=== PATIENT | female | born 1965 | race Caucasian/White ===

== ENCOUNTER 2017-07-25 08:48 | Outpatient (CLI) | payer BC ==
--- NOTE | 2017-07-25 09:06 | MMO ---
BILATERAL SCREENING MAMMOGRAM: DATE: 07/25/17 HISTORY: 52-year-old female for screening mammography. COMPARISON: 08/12/08. FINDINGS: Bilateral MLO and CC views of the breasts show heterogeneously dense breast parenchyma, which may lo wer the sensitivity of mammography. There is a new asymmetry in the middle depth of the right breast, centrally. This is not definitely seen on the prior mammogram. Benign appearing calcifications are seen in both breasts. No suspicious calcifications are present. IMPRESSION: Focal asymmetry in the right breast. BIRADS 0: Incomplete: Need Additional Imaging Evaluation and/or Prior Mammograms for Comparison Spot compression views are recommended for further evaluation. If this area persists, then an ultras ound will also need to be performed. The facility will notify the patient of the need for additional imaging services. POS: [facility]
== END 2017-07-25 08:49 | disposition home or self-care (01) ==
LOC: MAMMO 08:48
PROVIDERS: ATTEND Family Medicine
DX: Z12.31 Encounter for screening mammogram for malignant neoplasm of breast (principal); N64.89 Other specified disorders of breast
CPT/HCPCS: 77067; G0202

== ENCOUNTER 2017-08-02 14:46 | Outpatient (CLI) | payer BC ==
[2017-08-02 15:40] LABS: #Eosinphils 0.2 thou/uL (0.0-0.7); #Lymphocytes 1.5 thou/uL (1.20-3.40); #Monocytes 0.7 thou/uL (0.11-0.59); #Neutrophils 4.9 thou/uL (1.40-6.50); %Basophils 0.6 % (0.0-1.0); %Eosinophils 2.1 % (0.0-10.0); %Lymphocytes 20.1 % (21.0-51.0); %Monocytes 9.2 % (0.0-10.0); Hematocrit 44.8 % (36.0-47.0); Mean Platelet Volume 7.4 fL (7.4-10.4); Red Blood Cell (RBC) Count 4.22 mill/uL (4.20-5.40); White Blood Cell (WBC) Count 7.2 thou/uL (4.8-10.8)
[2017-08-02 16:01] LABS: Anion Gap 13 mmol/L (10-20); BUN (Urea Nitrogen) 15 mg/dL (9.8-20.1); Calc. Creatinine Clearance 0 mL/min (70-130); Calcium 9.4 mg/dL (7.8-10.44); Carbon Dioxide 27 mmol/L (22-29); Chloride 105 mmol/L (98-107); Estimated GFR-MDRD 72
--- NOTE | 2017-08-02 16:55 | RAD ---
CHEST 2 VIEWS: Date: 08/02/17 HISTORY: Preoperative exam. COMPARISON: None. FINDINGS: Normal cardiac silhouette. Pulmonary vessels and hilum are normal. Costophrenic angles are clear. No masses. No consolidation. No osseous abnormalities. No pneumothorax. IMPRESSION: No acute cardiopulmonary process. POS: [facility]
--- NOTE | 2017-08-05 11:37 | EKG ---
Test Reason : Blood Pressure : / mmHG Vent. Rate : 065 BPM Atrial Rate : 065 BPM P-R Int : 186 ms QRS Dur : 076 ms QT Int : 424 ms P-R-T Axes : 048 034 024 degrees QTc Int : 440 ms Normal sinus rhythm Cannot rule out Anterior infarct , age undetermined changes could be due to lead placement Abnormal ECG No previous ECGs available Confirmed by DR. Tahmina ROMEO ([id number]) on 08/05/2017 11:37:00 AM Referred By: GABRIELLA Confirmed By:DR. Tahmina ROMEO
== END 2017-08-02 14:47 | disposition home or self-care (01) ==
LOC: LABBT 14:46
PROVIDERS: ATTEND Orthopaedic Surgery Hand Surgery
DX: Z01.818 Encounter for other preprocedural examination (principal); M67.441 Ganglion, right hand
CPT/HCPCS: 71020; 80048; 85025; 93005; 93010

== ENCOUNTER 2017-08-05 14:10 | Day surgery (SDC) | payer BC ==
[2017-08-02 15:04] VITALS: BMI 38.2
[2017-08-05] MEDS ORDERED: Bupivacaine PF 0.5% 30 ML VIAL ONE (15:18)
[2017-08-05] MEDS ORDERED: Bacitracin Zinc Ointment 30 gm TUBE ONE (15:18)
[2017-08-05] MEDS ORDERED: CEFAZOLIN/Water 2 GM/20 ML SYRINGE ONE (15:28)
[2017-08-05] MEDS ORDERED: Midazolam HCl 2 mg/2 ml Vial ONE (16:27)
[2017-08-05] MEDS ORDERED: Fentanyl 100 MCG/2 ML VIAL ONE (16:27)
[2017-08-05] MEDS ORDERED: Ondansetron HCl/PF 4 MG/2 ML Vial ONE (16:43)
[2017-08-05] MEDS ORDERED: Dexamethasone 20 MG/5 ML VIAL ONE (16:43)
[2017-08-05] MEDS ORDERED: Propofol 200 MG/20 ML VIAL ONE (16:43)
[2017-08-05] MEDS ORDERED: Lidocaine 1% PF 5 ML VIAL ONE (16:43)
[2017-08-05] MEDS ORDERED: Ketorolac Tromethamine 30 MG/ML VIAL ONE ×2 (16:43→18:09)
--- NOTE | 2017-08-06 08:42 | OP ---
DATE OF PROCEDURE: 08/05/2017 PREOPERATIVE DIAGNOSIS: Right thumb ganglion, 8 mm. 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 PROCEDURES PERFORMED: 1. Extensor tenotomy, terminal portion, extensor pollicis longus. 2. Arthrotomy, interphalangeal joint. 3. Excision of biopsy mass right toe, possible brown tumor versus ganglion. TOURNIQUET TIME: Seven minutes. SURGEON: Channing Hodges MD BINDER LOCKSTITCH: Bernard Leblanc. COMPLICATIONS: None. SPECIMEN: Yes, the mass of 7 to 8 mm was sent to pathology. ANESTHESIA: General LMA technique, [place] Anesthesia, augmented by 8 mL 0.5% Marcaine block with e pinephrine. DESCRIPTION OF PROCEDURE: After successful general endotracheal anesthesia, the limb was prepped an d draped. Timeout was done appropriately. L-shaped incision was then made centered over the mass, which was essentially on the radial side. Care to skin, subcutaneous tissue, trying to protect the superficial nerve, terminal branches and then we found the mass to be brown, thick and more solid an d cystic. The mass was elevated after doing an extensive tenotomy to remove it from its adherence t o extensor tendon and pushed extensor tendon ulnarly and in the gap underneath this was the joint ca psule, which had a small hole in it. We opened the joint capsule arthrotomy and drained it. There was no abnormal fluid. No chondral degeneration seen. We irrigated, lifted the tumor/mass out and it was brown, fleshy and thick, approximately 8 mm in diameter. Tourniquet was deflated. Hemostasis obtained. Wound closed with interrupted 5-0 nylon simple patte rn. A bulky dressing was applied and the patient left the operating room without evidence of anesth etic complication.
== END 2017-08-05 18:55 | disposition home or self-care (01) ==
LOC: SDC 14:10
PROVIDERS: ATTEND Orthopaedic Surgery Hand Surgery
PROC: 0LB70ZZ Excision of Right Hand Tendon, Open Approach (ICD-10-PCS; principal; 2017-08-05)
PROC: 0R9W0ZZ Drainage of Right Finger Phalangeal Joint, Open Approach (ICD-10-PCS; principal; 2017-08-05)
PROC: 0LC70ZZ Extirpation of Matter from Right Hand Tendon, Open Approach (ICD-10-PCS; principal; 2017-08-05)
DX: D48.1 Neoplasm of uncertain behavior of connective and other soft tissue (principal); F41.9 Anxiety disorder, unspecified; I10 Essential (primary) hypertension; F32.9 Major depressive disorder, single episode, unspecified; E66.9 Obesity, unspecified; Z97.5 Presence of (intrauterine) contraceptive device; Z68.38 Body mass index [BMI] 38.0-38.9, adult; Z79.899 Other long term (current) drug therapy; Z90.89 Acquired absence of other organs; Z98.818 Other dental procedure status; Z98.890 Other specified postprocedural states
CPT/HCPCS: 88307; J1100; J1885; J2001; J2250; J2405; J2704; J3010; S0020

== ENCOUNTER 2017-08-06 13:39 | Outpatient (CLI) | payer BC ==
--- NOTE | 2017-08-21 16:17 | MMO ---
RIGHT UNILATERAL DIAGNOSTIC MAMMOGRAM: Date: 08/06/17 HISTORY: A 52-year-old female returns for additional views of the right breast to evaluate a somewhat nodular density seen only on the CC view. FINDINGS: Additional views, including mag compression spot views in CC and MLO, 90 degree mediolateral, and rol led CC views are performed. This density compresses out with these additional views. Appearance appears stable from old examinati ons, including 05/14/14, 04/11/13, 01/24/12, and 01/22/12, including previous right breast rolled vie ws which were done on 01/24/12 which appear to be stable and unchanged. IMPRESSION: BIRADS 2: Benign Finding(s) Continue annual follow-up screening mammograms. POS: [facility]EL
== END 2017-08-06 13:40 | disposition home or self-care (01) ==
LOC: MAMMO 13:39
PROVIDERS: ATTEND Family Medicine
DX: R92.2 Inconclusive mammogram (principal)
CPT/HCPCS: G0206-RT

== ENCOUNTER 2018-05-28 17:54 | Inpatient (IN) | payer BC ==
[2018-05-28 18:48] LABS: Hemoglobin 14.8 g/dL (12.0-16.0); Mean Corpuscular HGB CONC 34.8 g/dL (32.0-36.0); Mean Corpuscular Hemoglobin 35.7 pg (27.0-31.0); Mean Platelet Volume 8.7 fL (7.4-10.4); Platelet Count 202 thou/uL (130-400); Red Blood Cell (RBC) Count 4.15 mill/uL (4.20-5.40); White Blood Cell (WBC) Count 9.1 thou/uL (4.8-10.8)
--- NOTE | 2018-05-28 18:48 | RAD ---
CHEST TWO VIEW 05/28/18 HISTORY: Pneumonia. COMPARISON: Radiograph of 08/02/17. FINDINGS: The lungs are hypoinflated with vascular crowding. Small effusions. There are air space opacities in both lower lobes which may reflect underlying infiltrate. IMPRESSION: Findings concerning for small bilateral pleural effusions and lower lobe pneumonia. Followup after tr eatment recommended. POS: [facility]
[2018-05-28 19:04] LABS: Band 26 % (5-11); Lymphocytes 5 % (21-51); MDiff Complete? YES; Monocytes 6 % (0-10); Neutrophil 62 % (42-75); PLT Morphology Comment Appears Adequate; RBC Morphology Normal; Toxic Granulation SLIGHT; Vacuoles SLIGHT
[2018-05-28 19:15] LABS: ALT (SGPT) 63 U/L (8-55); AST (SGOT) 99 U/L (5-34); Alkaline Phosphatase 53 U/L (40-150); Anion Gap 17 mmol/L (10-20); BUN (Urea Nitrogen) 37 mg/dL (9.8-20.1); Bilirubin, Total 0.6 mg/dL (0.2-1.2); CK (CPK) 1953 U/L (29-168); Calc. Creatinine Clearance 0 mL/min (70-130); Calcium 9.4 mg/dL (7.8-10.44); Carbon Dioxide 20 mmol/L (22-29); Chloride 89 mmol/L (98-107); Estimated GFR-MDRD 24; Globulin 3.8 g/dL (2.4-3.5); Glucose 110 mg/dL (70-105); Protein, Total 7.8 g/dL (6.0-8.3); Sodium 123 mmol/L (136-145)
[2018-05-28 19:19] LABS: CKMB 4.3 ng/mL (0-6.6); Troponin I Less than 0.010 ng/mL (< 0.028)
[2018-05-28 19:23] LABS: Potassium 2.9 mmol/L (3.5-5.1)
[2018-05-28] MEDS ORDERED: Albuterol Sulfate 2.5 mg/3 ml Neb ONE (19:57)
[2018-05-28] MEDS ORDERED: Potassium Chloride 20 MEQ TAB ONE (21:45)
[2018-05-28] MEDS ORDERED: Azithromycin 500 MG VIAL ONE (21:45)
[2018-05-28] MEDS ORDERED: Senokot 8.6 MG TAB PO PRN (21:53)
[2018-05-28] MEDS ORDERED: Calcium Carbonate 500 MG ChewTAB PO PRN (21:53)
[2018-05-28] MEDS ORDERED: Mag-Al 1200 mg/1200 mg/30 ML UDCUP PO PRN (21:53)
[2018-05-28] MEDS ORDERED: HYDROcodone/Acetaminophen 5/325 mg Tablet PO PRN (21:53)
[2018-05-28] MEDS ORDERED: Bisacodyl 5 MG TAB PO PRN (21:53)
[2018-05-28] MEDS ORDERED: Ondansetron HCl/PF 4 MG/2 ML Vial IVP PRN (21:53)
[2018-05-28] MEDS ORDERED: Acetaminophen 325 MG TAB PO PRN (21:53)
[2018-05-28] MEDS ORDERED: traZODone HCl 50 MG TAB PO PRN (21:54)
[2018-05-28] MEDS ORDERED: Benzonatate 100 MG CAP PO PRN (21:54)
[2018-05-28] MEDS ORDERED: cloNIDine 0.1 MG TAB PO PRN (21:54)
[2018-05-28] MEDS ORDERED: Loratadine 10 MG TAB PO PRN (21:54)
[2018-05-28] MEDS ORDERED: traMADol HCl 50 MG TAB PO PRN (21:54)
[2018-05-28] MEDS ORDERED: hydrALAZINE 20 MG/ML VIAL SLOW IVP PRN (21:54)
[2018-05-28] MEDS ORDERED: Lorazepam 1 MG TAB PO PRN (21:54)
[2018-05-28] MEDS ORDERED: Diabetic Tussin 200 MG/10 ML UDCUP PO PRN (21:54)
[2018-05-28] MEDS ORDERED: cefTRIAXone\\ROCEPHIN 2 GM VIAL ONE (21:59)
[2018-05-28] MEDS ORDERED: Azithromycin 250 MG TAB ONE (21:59)
[2018-05-28] MEDS ORDERED: guaiFENesin ER 600 MG TAB PO SCH (22:30)
[2018-05-28] MEDS ORDERED: cefTRIAXone\\ROCEPHIN 2 GM in Sodium Chloride 0.9% 100 ML IVPB SCH (22:30)
[2018-05-28] MEDS ORDERED: Azithromycin 500 MG in Sodium Chloride 0.9% 250 ML 250 ML IVPB SCH (23:59)
[2018-05-29 01:08] VITALS: BMI 40.1
[2018-05-29] MEDS: Sodium Chloride 0.9% 1,000 ML IV SCH ×2 (01:27→08:46)
--- NOTE | 2018-05-29 02:43 | HP ---
DATE OF ADMISSION: 05/29/2018 The patient was seen prior midnight. PRIMARY CARE PHYSICIAN: Dr. Delmy Mccabe. CHIEF COMPLAINT: Worsening shortness of breath, fever, and cough. HISTORY OF PRESENT ILLNESS: Ms. Lyn is a 52-year-old female with past medical history of hypertens ion, who presented to the ER with above-mentioned complaint. History is mainly obtained by the patie nt herself and electronic medical records have been reviewed. Case has been discussed with the admit [facility] ER physician, Dr. Hirsch. Ms. Lyn report that she has had diarrhea for about 2 weeks, which is nonbloody. It is not associat ed with any abdominal cramps. She started to notice that she has not been urinating very frequently. She has noticed fever and cough for the last 2-3 days, she started to have significant cough. She sought care at the urgent care clinic twice for now and only yesterday, she was given injection of an antibiotic and was supposed to go back today to repeat the injection, but her symptoms of breathing got worse and she presented to the ER instead. She reports that she was up all night, last night bec ause of cough and had fever as high as 103.9. She denies any myalgias or arthralgias. She has a get e-in boyfriend and reports that he has some sort of a viral illness about a week or two ago, but he i s all better now, but the patient got sick. Upon presentation to the emergency room, her oxygen saturation was 92% on room air, but she was somew hat tachypneic with respiratory rate of 22-29. Her temperature in the emergency room initially was 9 9.1 and chest x-ray done in the ER showed a possibility of right lower lobe infiltrate. She was foun d to have significant lab abnormalities including hyponatremia with sodium of 123, hypokalemia with a potassium of 2.9, non-anion gap metabolic acidosis, as well as acute renal insufficiency with a BUN of 37 and creatinine of 2.16. Her lactic acid was normal at 1.1. She also has evidence of rhabdomyo lysis with elevated CK of 1953. Mild elevation of AST and ALT. Cardiac enzymes and BNP were normal. She was given Rocephin and azithromycin along with potassium and albuterol inhaler in the emergency r oom and is now being admitted with a presumptive diagnosis of community-acquired pneumonia. PAST MEDICAL HISTORY: 1. Anxiety. 2. Hypertension. 3. Depression. PAST SURGICAL HISTORY: section x2. FAMILY HISTORY: Father is . He had accidental drowning. Mother is alive. Siblings are ali ve and healthy. No family history of premature coronary artery disease or stroke. SOCIAL HISTORY: No history of tobacco or drug abuse. She does drink about 8 ounces of scotch every day and has stopped drinking only 1 month ago. She is living with her live-in boyfriend for 5 years now. ALLERGIES: No known medication allergies. CURRENT MEDICATIONS: Not updated as yet. She does report that she takes sertraline, and lisinopril unknown dose. REVIEW OF SYSTEMS: A 12-point review of systems was done. It is negative except for those mentioned in the history and physical. The patient does report some black colored stools, but no leidy blood or abdominal pain. She denies any recent travel. She denies any recent immobilization. She denies any lower extremity swelling or tenderness or pain. LABORATORY AND DIAGNOSTIC DATA: CBC shows hemoglobin of 14.8 with hematocrit of 42.5, MCV and MCH ar e both high. She has 26% bands with normal WBC count. Serum chemistries as above shows sodium 123, potassium 2.9, chloride 89, bicarbonate 20, BUN is 37, creatinine 2.16. AST 99, ALT 63, alkaline nadia sphatase 1953. Chest x-ray by my review shows small bilateral pleural effusion and bilateral lower l obe pneumonia. A 12-lead EKG by my review shows sinus tachycardia at 101 beats per minute with cynthia l ST segments and T waves. PHYSICAL EXAMINATION: VITAL SIGNS: Most recent vital signs, temperature 100.0, pulse of 93, respirations 18, saturating 93 % on room air, blood pressure 140/73, BMI of 40.2. GENERAL: She is walking around to the bathroom and now sitting up in the chair during the time of my examination. She is in no acute distress, in no respiratory distress. She is able to talk in full sentences and is not overtly short of breath, but she does definitely is breathing a little fast. HEENT: She has a thick coating on her tongue, which she reports that goes away when she brushes but comes back later. No oropharyngeal exudate or erythema. Head is normocephalic, atraumatic. Pupils are equal, reactive to light and accommodation. Extraocular movements are intact. NECK: Supple without any lymphadenopathy, JVD, or bruit. CHEST: Clear to auscultation without any wheezing, rales, or rhonchi. Breath sounds are reduced at bases and somewhat coarse. CARDIOVASCULAR: Rare and rhythm is regular without any murmur, rubs, or gallops. ABDOMEN: Obese, soft, nontender, nondistended with positive bowel sounds. EXTREMITIES: Free of any cyanosis, clubbing, or edema. NEUROLOGIC: Nonfocal. SKIN: Free of any rashes or bruises. Feels warm and dry to touch. PSYCHIATRIC: Normal. IMPRESSION AND PLAN: 1. Community-acquired pneumonia. The patient will be treated with Rocephin and azithromycin as star meghan in the emergency room. We will send for urinary legionella and pneumococcal antigens, though it is still early for the influenza season: We will go ahead and check her for the respiratory viral pa thogens. We will continue oxygen as needed and add nebulizers as needed as well. We will add Mucine x and incentive spirometry and provide symptomatic and supportive care. 2. Sepsis. The patient has bandemia along with pneumonia and fever and tachypnea. We will continue IV antibiotics as above and order blood cultures. We will also check a urinalysis and send urine fo r culture if infection is suspected. Most likely source at this time is, however, just pneumonia. 3. Hyponatremia. This is secondary to severe dehydration as the patient describes poor appetite and diarrhea for the last 2 weeks. We will start her on gentle IV fluid hydration with a goal to raise the sodium by 10 mEq over the 24 hours. 4. Hypochloremic nonmetabolic acidosis. Once again indicative of severe dehydration, continue IV fl uids as above and monitor labs. 5. Acute renal insufficiency. The patient has dehydration secondary to diarrhea with resultant prer enal azotemia. We will continue with IV fluids and recheck labs in the morning. Avoid any nephrotox ic medications. 6. Rhabdomyolysis. Continue generous IV fluid hydration and recheck CPK in the morning. 7. Elevated liver enzymes, this likely secondary to chronic alcoholism. The patient has been counse led and she has been abstinent for 1 month. 8. Melena. I am not sure what the patient is describing it is melena or not: However, she is at [facility] for upper gastrointestinal bleed given her alcoholism history and with possible gastritis, peptic ulcers, or variceal bleeding. At this time, I will put her on Protonix twice a day and monitor her H &H closely. If with hydration her H&H drops and she continues to have melena, we will request consul tation with Gastroenterology for a possible endoscopy. If her H&H remained stable, she would benefit from outpatient workup with an endoscopy in the near future. 9. History of hypertension. The patient takes IAN inhibitor and hydrochlorothiazide. Given acute r enal insufficiency at this time: We will hold it and use p.r.n. antihypertensives for now. 10. Alcohol abuse. The patient has been counseled. She has been abstinent for 1 month and add low risk for any alcohol withdrawal symptoms or delirium tremens. She will be monitored. 11. Code status: FULL CODE. Discussed with the patient. 12. Deep venous thrombosis and gastrointestinal prophylaxis. DISPOSITION: Ms. Lyn is currently being admitted to the hospital with a multitude of issues includ ing severe dehydration, sepsis, pneumonia, acute renal insufficiency. Estimated length of stay at this time is at least 2-3 midnights. Further management will depend upon her clinical course. Total time spent in admitting this complicated and sick patient is 40 minutes.
[2018-05-29 06:12] LABS: #Lymphocytes 0.8 thou/uL (1.20-3.40); #Monocytes 0.7 thou/uL (0.11-0.59); #Neutrophils 5.9 thou/uL (1.40-6.50); %Basophils 0.2 % (0.0-1.0); %Eosinophils 0.1 % (0.0-10.0); %Lymphocytes 10.9 % (21.0-51.0); %Monocytes 9.4 % (0.0-10.0); %Neutrophils 79.3 % (42.0-75.0); Hemoglobin 13.1 g/dL (12.0-16.0); Mean Corpuscular HGB CONC 35.3 g/dL (32.0-36.0); Mean Corpuscular Hemoglobin 36.2 pg (27.0-31.0); Mean Platelet Volume 8.8 fL (7.4-10.4); Platelet Count 184 thou/uL (130-400); Red Blood Cell (RBC) Count 3.61 mill/uL (4.20-5.40); White Blood Cell (WBC) Count 7.5 thou/uL (4.8-10.8)
[2018-05-29 06:19] LABS: Anion Gap 14 mmol/L (10-20); BUN (Urea Nitrogen) 35 mg/dL (9.8-20.1); Calc. Creatinine Clearance 71 mL/min (70-130); Calcium 8.9 mg/dL (7.8-10.44); Carbon Dioxide 22 mmol/L (22-29); Chloride 93 mmol/L (98-107); Estimated GFR-MDRD 31; Glucose 107 mg/dL (70-105); Sodium 126 mmol/L (136-145)
[2018-05-29 06:38] LABS: HIV (1/2) Antibody/Antigen Non-Reactive (NonReactive); HIV 1/2 INDEX 0.08 S/CO (<1.00)
[2018-05-29] MEDS ORDERED: Potassium Chloride 20 MEQ TAB PO SCH (08:00)
[2018-05-29] MEDS: guaiFENesin ER 600 MG TAB PO SCH ×2 (08:45→20:54)
[2018-05-29] MEDS: Enoxaparin Sodium 40 MG/0.4 ML SYRINGE SC SCH (08:45)
[2018-05-29] MEDS ORDERED: Famotidine 20 MG TAB PO SCH (09:00)
--- NOTE | 2018-05-29 10:56 | PDOC.PN ---
- Subjective Encounter Start Date: 05/29/18 Encounter Start Time: 09:25 Subjective: has exertional sob, no abd pain -: is oriented well this morning - Objective MAR Reviewed: Yes Vital Signs & Weight: Vital Signs (12 hours) Temp Pulse Resp BP Pulse Ox 05/29/18 06:41 96 05/29/18 06:39 80 16 96 05/29/18 03:42 101.7 F H 92 24 H 142/77 H 93 L 05/29/18 01:25 90 16 93 L 05/29/18 01:23 100.0 F H 90 16 93 L 05/29/18 01:07 100.0 F H 93 18 140/73 93 L Weight Weight 264 lb 4.8 oz Result Diagrams: 05/29/18 05:17 05/29/18 05:17 Phys Exam - Physical Examination HEENT: PERRLA, moist MMs Neck: no JVD, supple Respiratory: no rales, wheezing present Cardiovascular: RRR, no significant murmur Gastrointestinal: soft, non-tender, positive bowel sounds Musculoskeletal: no edema, pulses present Neurological: non-focal, moves all 4 limbs Psychiatric: normal affect, A&O x 3 Dx/Plan (1) PNA (pneumonia) Code(s): J18.9 - PNEUMONIA, UNSPECIFIED ORGANISM Status: Acute Qualifiers: Pneumonia type: due to unspecified organism (2) Sepsis Code(s): A41.9 - SEPSIS, UNSPECIFIED ORGANISM Status: Acute Qualifiers: Sepsis type: sepsis due to unspecified organism Qualified Code(s): A41.9 - Sepsis, unspecified organism (3) Hyponatremia Code(s): E87.1 - HYPO-OSMOLALITY AND HYPONATREMIA Status: Acute (4) Hypokalemia Code(s): E87.6 - HYPOKALEMIA Status: Acute (5) H/O alcohol abuse Code(s): Z87.898 - PERSONAL HISTORY OF OTHER SPECIFIED CONDITIONS Status: Chronic (6) Obesity Code(s): E66.9 - OBESITY, UNSPECIFIED Status: Chronic Qualifiers: Obesity classification: adult class 3 (BMI >= 40) Body mass index: BMI 40.0 -44.9 (7) FEROZ (acute kidney injury) Code(s): N17.9 - ACUTE KIDNEY FAILURE, UNSPECIFIED Status: Acute - Plan gentle iv hydration -: correct electrolytes -: is on zithromax and ceftriaxone -: duonebs, will add steroids if wheezing get worse -: to ambulate as tolerated, tx to medical floor * . Review of Systems - Medications/Allergies Allergies/Adverse Reactions: Allergies Allergy/AdvReac Type Severity Reaction Status Date / Time No Known Allergies Allergy Verified 05/29/18 04:02 Medications: Current Medications Acetaminophen (Tylenol) 650 mg PO Q4H PRN PRN Reason: Headache/Fever or Pain Hydrocodone Bitart/Acetaminophen ([place] 5/325) 1 tab PO Q4H PRN PRN Reason: Moderate Pain (4-6) Al Hydroxide/Mg Hydroxide (Maalox) 30 ml PO Q6H PRN PRN Reason: Heartburn or Indigestion Albuterol/Ipratropium (Duoneb) 3 ml NEB [id number] [facility] Last Admin: 05/29/18 06:39 Dose: 3 ml Albuterol/Ipratropium (Duoneb) 3 ml NEB [id number] PRN PRN Reason: SOB &/or Wheezing Benzonatate (Tessalon) 100 mg PO Q4H PRN PRN Reason: Cough Bisacodyl (Dulcolax) 10 mg PO DAILYPRN PRN PRN Reason: Constipation Calcium Carbonate (Tums) 1,000 mg PO Q4H PRN PRN Reason: Heartburn or Indigestion Clonidine (Catapres) 0.1 mg PO Q4H PRN PRN Reason: Systolic BP > 160 Enoxaparin Sodium (Lovenox) 40 mg SC 0900 [facility] Last Admin: 05/29/18 08:45 Dose: 40 mg Guaifenesin (Robitussin Sf) 200 mg PO Q4H PRN PRN Reason: Cough Guaifenesin (Mucinex) 1,200 mg PO Q12HR [facility] Last Admin: 05/29/18 08:45 Dose: 1,200 mg Hydralazine HCl (Apresoline) 10 mg SLOW IVP Q4H PRN PRN Reason: Systolic BP > 170 Sodium Chloride (Normal Saline 0.9%) 1,000 mls @ 100 mls/hr IV .Q10H [facility] Last Admin: 05/29/18 08:46 Dose: 1,000 mls Ceftriaxone Sodium 2 gm/ (Sodium Chloride) 100 mls @ 200 mls/hr IVPB Q24HR [facility] Azithromycin 500 mg/ Sodium (Chloride) 250 mls @ 250 mls/hr IVPB Q24HR [facility] Loratadine (Claritin) 10 mg PO DAILYPRN PRN PRN Reason: Sinus Symptoms Lorazepam (Ativan) 1 mg PO Q4H PRN PRN Reason: Anxiety/Agitation Ondansetron HCl (Zofran) 4 mg IVP Q6H PRN PRN Reason: Nausea/Vomiting Pantoprazole Sodium (Protonix) 40 mg PO BID [facility] Last Admin: 05/29/18 08:45 Dose: 40 mg Potassium Chloride (K-Dur) 20 meq PO QAM-WM [facility] Last Admin: 05/29/18 08:44 Dose: 20 meq Senna (Senokot) 2 tab PO HSPRN PRN PRN Reason: Constipation Sodium Chloride (Flush - Normal Saline) 10 ml IVF Q12HR [facility] Last Admin: 05/29/18 08:46 Dose: Not Given Sodium Chloride (Flush - Normal Saline) 10 ml IVF PRN PRN PRN Reason: Saline Flush Tramadol HCl (Ultram) 50 mg PO Q4H PRN PRN Reason: Moderate Pain (4-6) Trazodone HCl (Desyrel) 50 mg PO HSPRN PRN PRN Reason: Insomnia
[2018-05-29] MEDS: Potassium Chloride 20 MEQ TAB PO SCH (16:24)
[2018-05-29 16:55] LABS: Bilirubin Negative (Negative); Blood, Urine Trace (Negative); Clarity CLEAR (Clear); Glucose, Urine (Dipstick) Negative (Negative); Leukocyte Negative (Negative); Nitrite Negative (Negative); Protein, Urine (Dipstick) Trace mg/dL (Neg-Trace); Specific Gravity, Urine 1.011 (1.002-1.036); Urobilinogen 0.2 mg/dL (0.2-1.0)
[2018-05-29 16:57] LABS: Bacteria/HPF None Seen HPF (None Seen); Hyaline Casts/LPF 0-3 HYALINE CAST LPF (0-3 Hyaline); Pathc Cast-AUWi Flag 0.29 (0-2.49); Squamous Epithelial 0-3 HPF (0-3); WBC/HPF 0-3 HPF (0-3)
[2018-05-29 17:34] LABS: Legionella Urinary Ag Negative (Negative); Strep pneumo Urine Ag NEGATIVE (NEGATIVE)
[2018-05-29] MEDS: cefTRIAXone\\ROCEPHIN 2 GM in Sodium Chloride 0.9% 100 ML IVPB SCH (20:53)
[2018-05-29] MEDS: Magnesium Oxide 400 MG TAB PO SCH (20:54)
[2018-05-29] MEDS: Azithromycin 500 MG in Sodium Chloride 0.9% 250 ML 250 ML IVPB SCH (20:57)
[2018-05-30] MEDS: Sodium Chloride 0.9% 1,000 ML IV SCH ×2 (04:26→19:07)
[2018-05-30 05:25] LABS: Anion Gap 12 mmol/L (10-20); BUN (Urea Nitrogen) 18 mg/dL (9.8-20.1); Calc. Creatinine Clearance 116 mL/min (70-130); Calcium 8.6 mg/dL (7.8-10.44); Carbon Dioxide 22 mmol/L (22-29); Chloride 101 mmol/L (98-107); Estimated GFR-MDRD 54; Glucose 107 mg/dL (70-105); Potassium 3.4 mmol/L (3.5-5.1); Sodium 132 mmol/L (136-145)
[2018-05-30] MEDS: Magnesium Oxide 400 MG TAB PO SCH ×2 (08:57→20:06)
[2018-05-30] MEDS: Potassium Chloride 20 MEQ TAB PO SCH ×2 (08:57→17:06)
[2018-05-30] MEDS: guaiFENesin ER 600 MG TAB PO SCH ×2 (08:57→20:06)
[2018-05-30] MEDS: Enoxaparin Sodium 40 MG/0.4 ML SYRINGE SC SCH (09:01)
--- NOTE | 2018-05-30 11:14 | PDOC.PN ---
- Subjective Encounter Start Date: 05/30/18 Encounter Start Time: 09:20 Subjective: breathing better -: is ambulating in room and eating well -: drinking gatorade as well - Objective MAR Reviewed: Yes Vital Signs & Weight: Vital Signs (12 hours) Temp Pulse Resp BP Pulse Ox 05/30/18 08:00 98.5 F 81 18 05/30/18 07:18 98.5 F 81 18 106/70 90 L 05/30/18 06:35 87 16 94 L 05/30/18 04:00 98.4 F 77 20 115/80 93 L 05/30/18 00:00 98.5 F 94 20 118/72 94 L 05/29/18 23:23 82 16 Weight Weight 264 lb 4.8 oz I&O: 05/29/18 05/30/18 05/31/18 06:59 06:59 06:59 Intake Total 1200 Balance 1200 Result Diagrams: 05/29/18 05:17 05/30/18 04:41 Phys Exam - Physical Examination HEENT: PERRLA, moist MMs Neck: no JVD, supple Respiratory: no wheezing, no rales Cardiovascular: RRR, no significant murmur Gastrointestinal: soft, non-tender, positive bowel sounds Musculoskeletal: no edema, pulses present Neurological: non-focal, moves all 4 limbs Psychiatric: normal affect, A&O x 3 Dx/Plan (1) PNA (pneumonia) Code(s): J18.9 - PNEUMONIA, UNSPECIFIED ORGANISM Status: Acute Qualifiers: Pneumonia type: due to unspecified organism Laterality: bilateral Lung location: lower lobe of lung Qualified Code(s): J18.1 - Lobar pneumonia, unspecified organism (2) Sepsis Code(s): A41.9 - SEPSIS, UNSPECIFIED ORGANISM Status: Acute Qualifiers: Sepsis type: sepsis due to unspecified organism Qualified Code(s): A41.9 - Sepsis, unspecified organism (3) Hyponatremia Code(s): E87.1 - HYPO-OSMOLALITY AND HYPONATREMIA Status: Acute (4) Hypokalemia Code(s): E87.6 - HYPOKALEMIA Status: Acute (5) H/O alcohol abuse Code(s): Z87.898 - PERSONAL HISTORY OF OTHER SPECIFIED CONDITIONS Status: Chronic (6) Obesity Code(s): E66.9 - OBESITY, UNSPECIFIED Status: Chronic Qualifiers: Obesity classification: adult class 3 (BMI >= 40) Body mass index: BMI 40.0 -44.9 (7) FEROZ (acute kidney injury) Code(s): N17.9 - ACUTE KIDNEY FAILURE, UNSPECIFIED Status: Resolved - Plan electrolytes are stablizing -: likely has underlying sleep apnea/obesity hypoventilation syndrome -: continue ceftriaxone and zithromax with nebs -: to ambulate in hallway as tolerated -: dc plan in am if stable * . Review of Systems - Medications/Allergies Allergies/Adverse Reactions: Allergies Allergy/AdvReac Type Severity Reaction Status Date / Time No Known Allergies Allergy Verified 05/29/18 04:02 Medications: Current Medications Acetaminophen (Tylenol) 650 mg PO Q4H PRN PRN Reason: Headache/Fever or Pain Hydrocodone Bitart/Acetaminophen ([place] 5/325) 1 tab PO Q4H PRN PRN Reason: Moderate Pain (4-6) Al Hydroxide/Mg Hydroxide (Maalox) 30 ml PO Q6H PRN PRN Reason: Heartburn or Indigestion Albuterol/Ipratropium (Duoneb) 3 ml NEB [id number] [facility] Last Admin: 05/30/18 06:35 Dose: 3 ml Albuterol/Ipratropium (Duoneb) 3 ml NEB [id number] PRN PRN Reason: SOB &/or Wheezing Benzonatate (Tessalon) 100 mg PO Q4H PRN PRN Reason: Cough Bisacodyl (Dulcolax) 10 mg PO DAILYPRN PRN PRN Reason: Constipation Calcium Carbonate (Tums) 1,000 mg PO Q4H PRN PRN Reason: Heartburn or Indigestion Clonidine (Catapres) 0.1 mg PO Q4H PRN PRN Reason: Systolic BP > 160 Enoxaparin Sodium (Lovenox) 40 mg SC 0900 [facility] Last Admin: 05/30/18 09:01 Dose: 40 mg Guaifenesin (Robitussin Sf) 200 mg PO Q4H PRN PRN Reason: Cough Guaifenesin (Mucinex) 1,200 mg PO Q12HR [facility] Last Admin: 05/30/18 08:57 Dose: 1,200 mg Hydralazine HCl (Apresoline) 10 mg SLOW IVP Q4H PRN PRN Reason: Systolic BP > 170 Ceftriaxone Sodium 2 gm/ (Sodium Chloride) 100 mls @ 200 mls/hr IVPB Q24HR [facility] Last Admin: 05/29/18 20:53 Dose: 100 mls Azithromycin 500 mg/ Sodium (Chloride) 250 mls @ 250 mls/hr IVPB Q24HR [facility] Last Admin: 05/29/18 20:57 Dose: 250 mls Loratadine (Claritin) 10 mg PO DAILYPRN PRN PRN Reason: Sinus Symptoms Lorazepam (Ativan) 1 mg PO Q4H PRN PRN Reason: Anxiety/Agitation Magnesium Oxide (Magnesium Oxide) 400 mg PO BID [facility] Last Admin: 05/30/18 08:57 Dose: 400 mg Ondansetron HCl (Zofran) 4 mg IVP Q6H PRN PRN Reason: Nausea/Vomiting Pantoprazole Sodium (Protonix) 40 mg PO BID [facility] Last Admin: 05/30/18 08:57 Dose: 40 mg Potassium Chloride (K-Dur) 40 meq PO BID[facility] Last Admin: 05/30/18 08:57 Dose: 40 meq Senna (Senokot) 2 tab PO HSPRN PRN PRN Reason: Constipation Sodium Chloride (Flush - Normal Saline) 10 ml IVF Q12HR [facility] Last Admin: 05/30/18 09:01 Dose: Not Given Sodium Chloride (Flush - Normal Saline) 10 ml IVF PRN PRN PRN Reason: Saline Flush Tramadol HCl (Ultram) 50 mg PO Q4H PRN PRN Reason: Moderate Pain (4-6) Trazodone HCl (Desyrel) 50 mg PO HSPRN PRN PRN Reason: Insomnia
[2018-05-30] MEDS: cefTRIAXone\\ROCEPHIN 2 GM in Sodium Chloride 0.9% 100 ML IVPB SCH (20:06)
[2018-05-30] MEDS: Azithromycin 500 MG in Sodium Chloride 0.9% 250 ML 250 ML IVPB SCH (21:32)
[2018-05-31 05:26] LABS: Anion Gap 10 mmol/L (10-20); BUN (Urea Nitrogen) 14 mg/dL (9.8-20.1); Calc. Creatinine Clearance 137 mL/min (70-130); Calcium 8.6 mg/dL (7.8-10.44); Carbon Dioxide 26 mmol/L (22-29); Chloride 102 mmol/L (98-107); Estimated GFR-MDRD 65; Glucose 103 mg/dL (70-105); Potassium 3.3 mmol/L (3.5-5.1); Sodium 135 mmol/L (136-145)
[2018-05-31] MEDS: Potassium Chloride 20 MEQ TAB PO SCH (08:26)
[2018-05-31] MEDS: guaiFENesin ER 600 MG TAB PO SCH (08:27)
[2018-05-31] MEDS: Magnesium Oxide 400 MG TAB PO SCH (08:28)
[2018-05-31] MEDS: Enoxaparin Sodium 40 MG/0.4 ML SYRINGE SC SCH (09:00)
[2018-05-31 09:02] LABS: Mean Corpuscular HGB CONC 34.1 g/dL (32.0-36.0); Mean Platelet Volume 8.3 fL (7.4-10.4); Platelet Count 245 thou/uL (130-400); RBC Distribution Width 14.2 % (11.5-14.5); Red Blood Cell (RBC) Count 3.34 mill/uL (4.20-5.40)
[2018-05-31 09:32] LABS: Band 2 % (5-11); Eosinophils 8 % (0-10); Lymphocytes 21 % (21-51); MDiff Complete? YES; Macrocytosis MODERATE=16-30 cells (100X) (0-5/hpf); Monocytes 13 % (0-10); Neutrophil 56 % (42-75); PLT Morphology Comment Appears Adequate; Polychromasia SLIGHT = 2-3 cells (100X) (0-2/hpf)
[2018-05-31 13:16] VITALS: BP 135/84; TEMP 98.4
--- NOTE | 2018-05-31 13:19 | PDOC.PN ---
- Subjective Encounter Start Date: 05/31/18 Encounter Start Time: 07:25 Subjective: feels better, is amb in room/hallway - Objective MAR Reviewed: Yes Vital Signs & Weight: Vital Signs (12 hours) Temp Pulse Resp BP Pulse Ox 05/31/18 13:15 98.4 F 74 16 135/84 94 L 05/31/18 08:39 98.3 F 77 18 94 L 05/31/18 07:53 98.3 F 77 18 112/72 94 L 05/31/18 06:46 94 L 05/31/18 06:43 81 16 94 L Weight Weight 264 lb 4.8 oz I&O: 05/30/18 05/31/18 06/01/18 06:59 06:59 06:59 Intake Total 1200 1070 Balance 1200 1070 Result Diagrams: 05/31/18 04:24 05/31/18 04:24 Phys Exam - Physical Examination HEENT: PERRLA, moist MMs Neck: no JVD, supple Respiratory: no wheezing, no rales Cardiovascular: RRR, no significant murmur Gastrointestinal: soft, non-tender, positive bowel sounds Musculoskeletal: no edema, pulses present Neurological: non-focal, moves all 4 limbs Psychiatric: normal affect, A&O x 3 Dx/Plan (1) PNA (pneumonia) Code(s): J18.9 - PNEUMONIA, UNSPECIFIED ORGANISM Status: Acute Qualifiers: Pneumonia type: due to unspecified organism Laterality: bilateral Lung location: lower lobe of lung Qualified Code(s): J18.1 - Lobar pneumonia, unspecified organism (2) Sepsis Code(s): A41.9 - SEPSIS, UNSPECIFIED ORGANISM Status: Acute Qualifiers: Sepsis type: sepsis due to unspecified organism Qualified Code(s): A41.9 - Sepsis, unspecified organism (3) Hyponatremia Code(s): E87.1 - HYPO-OSMOLALITY AND HYPONATREMIA Status: Resolved (4) Hypokalemia Code(s): E87.6 - HYPOKALEMIA Status: Resolved (5) H/O alcohol abuse Code(s): Z87.898 - PERSONAL HISTORY OF OTHER SPECIFIED CONDITIONS Status: Chronic (6) Obesity Code(s): E66.9 - OBESITY, UNSPECIFIED Status: Chronic Qualifiers: Obesity classification: adult class 3 (BMI >= 40) Body mass index: BMI 40.0 -44.9 (7) FEROZ (acute kidney injury) Code(s): N17.9 - ACUTE KIDNEY FAILURE, UNSPECIFIED Status: Resolved - Plan hemostable -: dc pt home -: counselled to reduce weight by exercising and healthy eating * .
--- NOTE | 2018-05-31 22:52 | DIS ---
DATE OF ADMISSION: 05/29/2018 DATE OF DISCHARGE: 05/31/2018 DISCHARGE DISPOSITION: To home. PRIMARY DISCHARGE DIAGNOSES: Pneumonia, sepsis resolving, hyponatremia, hypokalemia, and acute kidney injury, all resolved. History of alcohol abuse which she quit a month ago, chronic obesity. PROCEDURES DONE DURING HOSPITALIZATION: Chest x-ray done showed findings concerning for bilateral small pleural effusion with lower lobe pneumonia at 26 % bands with 62% neutrophils on the day of admission. Discharge sodium is 135. Discharge BUN and creatinine of 14 and 0.9. Admitting BUN and creatinine were 37 and 2.1 with initial sodium of 123 on the . CK levels were 1953. BNP less than 10. HIV 1 and 2 nonreactive. Urine for Legionella pneumophila was negative. Urine for Strep pneumo antigen was negative. Blood cultures x2 no growth. Respiratory virus panel, PCR was negative. DISCHARGE MEDICATIONS: Levaquin 500 mg p.o. daily for another 6 days, albuterol inhaler q.6 hourly p.r.n., Zoloft 50 mg p.o. daily, lisinopril with hydrochlorothiazide 20/12.5 mg 1 tab daily, omeprazole 20 mg p.o. daily. ALLERGIES: No known drug allergies. DISCHARGE PLAN: The patient to follow up with primary care physician in 1 week. BRIEF COURSE DURING HOSPITALIZATION: The patient initially got admitted on the with complaints of shortness of breath, fever, and cough. Her initial x- ray was suspicious for pneumonia. She also had a temperature of 103.9 on the night before arrival here, viral respiratory pathogen PCR was negative. The patient had acute kidney injury with multiple electrolyte abnormalities including hypokalemia, hyponatremia as well. She was gently hydrated and had all the electrolytes corrected. She was on IV antibiotics and has been switched over to Levaquin at the time of discharge. Prior to discharge, she is ambulating and eating well. The patient's BMI is around 40 and has been counseled to lose weight with exercise and healthy eating. Please see a face-to -face documentation for the day of discharge on [employer]. [facility]
--- NOTE | 2018-06-03 12:31 | PQF ---
LARA HANNA, NICHOLAS JACKSON MD [id number] CLINICAL DOCUMENTATION CLARIFICATION FORM: POST DISCHARGE Addendum to original discharge summary date: ____ Late entry note date: __ DATE: 06/03/2018 ATTN: DR. MARION Please exercise your independent, professional judgment in responding to the clarification form. Clinical indicators are provided on the bottom of this form for your review Please check appropriate box(s): BMI > 40 with associated diagnosis of: (check one) [ ] Morbid (Severe) Obesity [ ] Due to excess calories [ ] with Alveolar Hypoventilation (Pickwickian syndrome) [ ] Overweight [ ] Obesity [ ] Other diagnosis [ x ] Unable to determine In addition, please specify: Present on Admission (POA): [ ] Yes [ ] No [ ] Unable to Determine For continuity of documentation, please document condition throughout progress notes and discharge summary. Thank You. BMI < 19 Under weight 19 - 24.9 Healthy 25.0 - 29.9Slightly Overweight 30.0 - 34.9Obese 35.0 - 39.9Severely Obese 40.0 and OverMorbidly Obese CLINICAL INDICATORS - SIGNS / SYMPTOMS / LABS: BMI of: 40.0 PN--Obesity, unspecified chronic 05/30 PN - Obesity, unspecified chronic --"likely has underlying sleep apnea/ obesity hypoventilation syndrome" DS - Chronic obesity RISK FACTORS: Sepsis Hyponatremia ARF TREATMENTS: Dietary consult / weight loss counseling (This form is maintained as a part of the permanent medical record) 2014 [employer] All Rights Reserved Marilyn Pantoja, JAYRO, OPERATING ROOM [email or web address] [phone] FARIDA
== END 2018-05-31 13:26 | disposition home or self-care (01) | DRG 871 ==
LOC: ERS 17:54 → 2NO 05-29 00:03 → T4-A 05-29 12:26
PROVIDERS: ADMIT Internal Medicine; ATTEND Internal Medicine
DX: A41.9 Sepsis, unspecified organism (principal); J18.9 Pneumonia, unspecified organism; E87.1 Hypo-osmolality and hyponatremia; E87.2 Acidosis; M62.82 Rhabdomyolysis; Z68.41 Body mass index [BMI] 40.0-44.9, adult; N17.9 Acute kidney failure, unspecified; E86.0 Dehydration; F10.10 Alcohol abuse, uncomplicated; I10 Essential (primary) hypertension; E87.6 Hypokalemia; F32.9 Major depressive disorder, single episode, unspecified; E66.9 Obesity, unspecified
CPT/HCPCS: 36415; 71046; 80048; 80053; 81001; 82553; 83605; 83880; 84484; 85025; 87040; 87389; 87633; 87899; 93005; 94640; 96361; 96365; A4216; J0456; J0696; J1650; J7050; J7611; J7620

== ENCOUNTER 2018-08-07 10:51 | Outpatient (CLI) | payer BC | END 2018-08-07 10:52 | disposition home or self-care (01) | LOC: BICMAMMO 10:51 | PROVIDERS: ATTEND Family Medicine | DX: Z12.31 Encounter for screening mammogram for malignant neoplasm of breast (principal); R92.1 Mammographic calcification found on diagnostic imaging of breast | CPT/HCPCS: 77063; 77067 ==

== ENCOUNTER 2020-07-19 14:11 | Outpatient (CLI) | payer BC ==
--- NOTE | 2020-07-19 15:04 | MMO ---
Bilateral MAMMO Bilat Screen [facility]. CLINICAL HISTORY: Patient is 55 years old and is seen for screening. The patient has no family history of breast cancer. The patient has no personal history of cancer. VIEWS: The views performed were: bilateral craniocaudal with tomosynthesis and bilateral mediolateral oblique with tomosynthesis. FILMS COMPARED: The present examination has been compared to prior imaging studies performed at [facility] on 01/22/2012, 04/21/2013, 05/14/2014 and 08/07/2018. This study has been interpreted with the assistance of computer-aided detection. MAMMOGRAM FINDINGS: There are scattered fibroglandular densities. There are no suspicious masses, suspicious calcifications, or new areas of architectural distortion. IMPRESSION: THERE IS NO MAMMOGRAPHIC EVIDENCE OF MALIGNANCY. A ROUTINE FOLLOW-UP MAMMOGRAM IN 1 YEAR IS RECOMMENDED. THE RESULTS OF THIS EXAM WERE SENT TO THE PATIENT. ACR BI-RADS Category 1 - Negative MAMMOGRAPHY NOTE: 1. A negative mammogram report should not delay a biopsy if a dominant of clinically suspicious mass is present. 2. Approximately 10% to 15% of breast cancers are not detected by mammography. 3. Adenosis and dense breasts may obscure an underlying neoplasm. Reported by: Crystal GRAJEDA Electonically Signed: [id number]
== END 2020-07-19 14:12 | disposition home or self-care (01) ==
LOC: BICMAMMO 14:11
PROVIDERS: ATTEND Family Medicine
DX: Z12.31 Encounter for screening mammogram for malignant neoplasm of breast (principal)
CPT/HCPCS: 77063; 77067

== ENCOUNTER 2021-08-29 08:36 | Outpatient (CLI) | payer BC | END 2021-08-29 08:37 | disposition home or self-care (01) | LOC: BICMAMMO 08:36 | PROVIDERS: ATTEND Family Medicine | DX: Z12.31 Encounter for screening mammogram for malignant neoplasm of breast (principal); N64.89 Other specified disorders of breast | CPT/HCPCS: 77063; 77067 ==

== ENCOUNTER 2021-09-11 09:02 | Outpatient (CLI) | payer BC | END 2021-09-11 09:03 | disposition home or self-care (01) | LOC: BICMAMMO 09:02 | PROVIDERS: ATTEND Family Medicine | DX: R92.8 Other abnormal and inconclusive findings on diagnostic imaging of breast (principal) | CPT/HCPCS: G0279 ==

== ENCOUNTER 2025-06-17 09:37 | Outpatient (CLI) | payer BC | END 2025-06-17 09:38 | disposition home or self-care (01) | LOC: BICMAMMO 09:37 | PROVIDERS: ATTEND Family Medicine | DX: Z12.31 Encounter for screening mammogram for malignant neoplasm of breast (principal) | CPT/HCPCS: 77063; 77067 ==